=== PATIENT | male | born 1970 ===

== ENCOUNTER 2018-10-16 17:23 | Inpatient (IN) | payer MEDICAID, OTHER ==
[~2018-10-16] VITALS: Ht 175.3 cm; Wt 100.0 kg
--- NOTE | 2018-10-16 18:07 | NUR ---
PATEINT TO RADIOLOGY.
[2018-10-16 18:27] LABS: BASOPHILS % (AUTO) 0 % (0-1); EOSINOPHILS % (AUTO) 0 % (0-6); HEMATOCRIT 46.6 % (42.0-52.0); HEMOGLOBIN 15.8 g/dl (14.0-17.9); LYMPHOCYTES # (AUTO) 0.8 X10'3 (1.1-4.8); LYMPHOCYTES % (AUTO) 3.8 % (21-51); MEAN CORPUSCULAR HEMOGLOBIN 29.9 PG (27.0-31.0); MEAN CORPUSCULAR HGB CONC 33.8 % (33.0-36.5); MEAN CORPUSCULAR VOLUME 88.4 FL (78-98); MEAN PLATELET VOLUME 8.5 FL (7.4-10.4); MONOCYTES % (AUTO) 4.5 % (2-12); NEUTROPHILS # (AUTO) 20.2 X10'3 (1.8-7.7); NEUTROPHILS % (AUTO) 91.7 % (42-75); PLATELET COUNT 204 X10'3 (140-440); RED BLOOD COUNT 5.27 X10'6 (4.70-6.10); RED CELL DISTRIBUTION WIDTH 13.5 % (11.5-14.5)
[2018-10-16 18:35] LABS: PARTIAL THROMBOPLASTIN TIME 27 SECONDS (22-32); PROTHROMBIN TIME 10.3 SECONDS (9.0-12.0)
[2018-10-16] MEDS ORDERED: NO HOME MEDS (18:36)
[2018-10-16 18:41] LABS: ALANINE AMINOTRANSFERASE 23 U/L (12-78); ALBUMIN 3.3 G/DL (3.4-5.0); ALKALINE PHOSPHATASE 122 IU/L (46-116); ANION GAP 10 (8-16); ASPARTATE AMINO TRANSFERASE 14 U/L (10-37); BLOOD UREA NITROGEN 19 MG/DL (7-18); BUN/CREATININE RATIO 12.2 (5.4-32.0); CALCIUM 8.4 MG/DL (8.5-10.1); CHLORIDE 100 MMOL/L (99-107); CREATININE 1.56 MG/DL (0.60-1.10); GLUCOSE 136 MG/DL (70-104); POTASSIUM 3.5 MMOL/L (3.5-5.1); SODIUM 135 MMOL/L (135-145); TOTAL CARBON DIOXIDE 25.2 MMOL/L (24-32); TOTAL PROTEIN 6.7 G/DL (6.4-8.2); eGFR 47 ML/MIN
[2018-10-16] MEDS ORDERED: normal saline 1000ml 1,000 ML IVB ONE ×2 (18:41→19:50)
[2018-10-16 19:19] LABS: PLATELET ESTIMATE NORMAL; TOTAL CELLS COUNTED 100
[2018-10-16 19:20] LABS: LARGE PLATELETS FEW
--- NOTE | 2018-10-16 19:51 | NUR ---
DR BAL MADE AWARE RN HUNG ANOTHER LITER OF NS HR STILL TACHY 115 AND BP HAD DROPPED TO 91/69. SO ORDERED.
[2018-10-16] MEDS ORDERED: levoFLOXACIN-Levaquin 750MG/D5 150 ML IV STA (19:57)
[2018-10-16] MEDS ORDERED: normal saline 1000ml 1,000 ML IV ONE (20:00)
[2018-10-16] MEDS ORDERED: acetaminophen 325mg tablet PO ONE (20:15)
--- NOTE | 2018-10-16 20:19 | NUR ---
SECOND LITER OF FLUID STILL INFUSING, ABX STARTED. HE IS C/O PAIN. SPUTUM CULTURE COLLECTED.
--- NOTE | 2018-10-16 20:30 | NUR ---
FAMILY STEPPED OUT TO GET HIM SOME FOOD, HE IS HUNGRY FOR SOFT SHELLED TACOS.
[2018-10-16] MEDS ORDERED: acetaminophen 325mg tablet PO PRN ×2 (20:35)
[2018-10-16] MEDS ORDERED: magnesium hydroxide 30ml (MOM) UD suspension PO PRN (20:35)
[2018-10-16] MEDS ORDERED: mag hydrox/Alum hydrox/simeth 30ml oral suspension PO PRN (20:35)
[2018-10-16] MEDS ORDERED: morphine 10mg/ml inj. IV PRN (20:35)
[2018-10-16] MEDS ORDERED: HYDROcodone/acetaminophen 5mg/325mg tablet PO PRN (20:35)
[2018-10-16] MEDS ORDERED: ondansetron/PF 4mg/2ml inj IV PRN (20:35)
[2018-10-16] MEDS: morphine 10mg/ml inj. IV PRN (20:51)
--- NOTE | 2018-10-16 20:56 | NUR ---
FAMILY BACK AND HE IS EATING HIS TACOS, ADM PAIN MEDS.
[2018-10-16] MEDS: normal saline 1000ml 1,000 ML IV SCH (21:11)
[2018-10-16] MEDS: temazepam 15mg capsule PO PRN (21:31)
--- NOTE | 2018-10-16 21:32 | NUR ---
HE HAD SAT UP IN BED, APPEARING ANXIOUS, REMOVED HIS GOWN. HE IS RESTLESS. ADM RESTORIL. FAMILY HAS LEFT
--- NOTE | 2018-10-16 21:32 | NUR ---
CHER: [phone] (DAUGHTER)
--- NOTE | 2018-10-16 22:07 | NUR ---
pt finally asleep.
--- NOTE | 2018-10-16 23:51 | NUR ---
he said he is just not feeling well, difficulty breathing, still anxious, VS as charted. Will call hospitalist.
--- NOTE | 2018-10-16 23:52 | NUR ---
oxygen increased to 4 l nc for spox 90% on 2 L nc.
[2018-10-16] MEDS ORDERED: LORazepam 2 mg/ml vial IV STA (23:54)
[2018-10-16] MEDS ORDERED: normal saline 1000ml 1,000 ML IV STA (23:54)
--- NOTE | 2018-10-16 23:55 | NUR ---
dr Lucas notified via telephone how the patient is presenting, the VS and the procalcitonin level. Ativan 1 mg IV ordered and another liter of NS. informed that the patient has not voided yet and that he has no feelings of needing to void.
--- NOTE | 2018-10-17 00:45 | NUR ---
Pt moved onto a hospital bed.
--- NOTE | 2018-10-17 03:29 | NUR ---
HR 120 bpm. Discussed with the patient how much ETOH he drinks. He seemed defensive. He says he doesn't drink every day. He didn't drink past 2 days. He said he drink 2 x a week and "a drink." He has yet to void. Hung another liter of NS.
[2018-10-17] MEDS ORDERED: normal saline 1000ml 1,000 ML IV ONE (03:30)
[2018-10-17 05:34] LABS: URINE AMPHETAMINE SCREEN POSITIVE (Neg); URINE BARBITUATE SCREEN NEGATIVE (Neg); URINE BENZODIAZEPINES SCREEN NEGATIVE (Neg); URINE CANNABINOID SCREEN NEGATIVE (Neg); URINE COCAINE SCREEN NEGATIVE (Neg); URINE METHADONE SCREEN NEGATIVE (Neg); URINE OPIATE SCREEN POSITIVE (Neg); URINE PHENCYCLIDINE SCREEN NEGATIVE (Neg)
--- NOTE | 2018-10-17 05:44 | NUR ---
amphetamine noted in his ua.
[2018-10-17 05:56] LABS: CLARITY,URINE CLEAR (Clear); COLOR,URINE YELLOW (Yellow); GLUCOSE, URINE NEGATIVE (Neg); KETONES,URINE NEGATIVE (Neg); LEUKOCYTE ESTERASE ,URINE NEGATIVE (Neg); NITRITES, URINE NEGATIVE (Neg); OCCULT BLOOD,URINE NEGATIVE (Neg); PH,URINE 5.5 (4.8-8.0); PROTEIN,URINE TRACE mg/dl (Neg); UROBILINOGEN,URINE 0.2 E.U/dL (0.2-1.0)
[2018-10-17 05:57] LABS: UA COLLECTION TYPE VOIDED
[2018-10-17 06:15] LABS: BACTERIA,URINE NONE SEEN /HPF (Neg); MUCUS STRANDS MANY /LPF (Neg); RBC,URINE 0-2 /HPF (0-2); SQUAMOUS EPITHELIAL CELL,UR FEW /LPF (FEW); TRANSITIONAL EPI CELLS,URINE FEW /HPF; WBC,URINE 0-4 /HPF (0-4)
[2018-10-17 06:16] LABS: AMORPHOUS URATES 1+
[2018-10-17] MEDS: normal saline 1000ml 1,000 ML IV SCH ×2 (06:32→16:32)
--- NOTE | 2018-10-17 06:37 | NUR ---
PATIENT ON BED ASLEEP,IV NS INFUSING 100ML/HR.
--- NOTE | 2018-10-17 07:29 | NUR ---
given a pitcher of water with ice,awaiting for inpatient room assignment.
[2018-10-17] MEDS: enoxaparin 40mg/0.4ml syringe SUBCUT SCH (08:07)
--- NOTE | 2018-10-17 08:09 | NUR ---
patient wanting a different nurse since his Primary nurse is being "rude",reported he c.o "hard time breathing" this morning but was flat out lie.Primary RN did morning rounds this morning,cleaned his tray with sputum all over,gave him emesis bag to spit his sputum,given him pitcher of water with ice,offered hospital gown-without any complains of pain or breathing issues.
[2018-10-17] MEDS: morphine 10mg/ml inj. IV PRN (08:26)
--- NOTE | 2018-10-17 08:29 | NUR ---
PAGED DR. CID TO REQUEST BREATHING TX.PATIENT NOTED CRACKLES TO BOTH UPPER LOBES.
--- NOTE | 2018-10-17 08:29 | NUR ---
YURIY 93% ON 5L,WILL CONTACT
--- NOTE | 2018-10-17 08:30 | NUR ---
ALSO REPORTS SOB AT THIS TIME.SAT 99 % ON 5l NC.
--- NOTE | 2018-10-17 09:08 | NUR ---
PATIENT ASLEEP A THIS TIME,AWAITNG FOR DR. CID'S CALL AFTER REQUEST FOR BREATHING TX.
--- NOTE | 2018-10-17 09:21 | NUR ---
paged Dr. Martinez 2 to request breathing tx.
[2018-10-17] MEDS ORDERED: albuterol 2.5 MG/3 ML nebule NEB PRN (09:45)
[2018-10-17 10:10] LABS: ALBUMIN 2.5 G/DL (3.4-5.0); ANION GAP 8 (8-16); BLOOD UREA NITROGEN 18 MG/DL (7-18); BUN/CREATININE RATIO 17.8 (5.4-32.0); CALCIUM 7.7 MG/DL (8.5-10.1); CHLORIDE 104 MMOL/L (99-107); CREATININE 1.01 MG/DL (0.60-1.10); GLUCOSE 81 MG/DL (70-104); POTASSIUM 4.1 MMOL/L (3.5-5.1); SODIUM 138 MMOL/L (135-145); TOTAL CARBON DIOXIDE 26.2 MMOL/L (24-32); eGFR 78 ML/MIN
[2018-10-17 10:12] LABS: BASOPHILS % (AUTO) 0.1 % (0-1); EOSINOPHILS % (AUTO) 0 % (0-6); HEMATOCRIT 40.8 % (42.0-52.0); HEMOGLOBIN 13.6 g/dl (14.0-17.9); LYMPHOCYTES # (AUTO) 2.2 X10'3 (1.1-4.8); LYMPHOCYTES % (AUTO) 10.2 % (21-51); MEAN CORPUSCULAR HGB CONC 33.3 % (33.0-36.5); MEAN PLATELET VOLUME 8.9 FL (7.4-10.4); MONOCYTES # (AUTO) 0.6 X10'3 (0-0.9); MONOCYTES % (AUTO) 2.6 % (2-12); NEUTROPHILS # (AUTO) 19.1 X10'3 (1.8-7.7); NEUTROPHILS % (AUTO) 87.1 % (42-75); PLATELET COUNT 197 X10'3 (140-440); RED BLOOD COUNT 4.54 X10'6 (4.70-6.10); RED CELL DISTRIBUTION WIDTH 13.9 % (11.5-14.5); WHITE BLOOD COUNT 21.9 X10'3 (4.5-11.0)
[2018-10-17 10:30] LABS: PLATELET ESTIMATE NORMAL; TOTAL CELLS COUNTED 100
--- NOTE | 2018-10-17 12:49 | NUR ---
PT'S DAUGHTER DAGO [phone]
--- NOTE | 2018-10-17 12:50 | NUR ---
PT IS UP AND AMBULATED TO THE BATHROOM.
--- NOTE | 2018-10-17 17:23 | NUR ---
DAE CUNNINGHAM GAVE PT 2 ICE PACKS FOR PT'S NECK. PT IS SLEEPING LAYING SUPINE, RESPIRATIONS EVEN AND UNLABORED. NO DISTRESS NOTED AT THIS TIME.
[2018-10-17] MEDS ORDERED: levoFLOXACIN-Levaquin 750MG/D5 150 ML IV SCH (20:00)
[2018-10-17] MEDS: lactobacillus rhamnosus 10,000 MMU CELLS/CAPSULE PO SCH (20:54)
[2018-10-17] MEDS: HYDROcodone/acetaminophen 10/325mg tab PO PRN (20:54)
--- NOTE | 2018-10-17 22:17 | NUR ---
Consulted with Dr Lucas about doing a CTA on the patient to r/o PE since pt continues to be tachycardic, diff breathing, anxiety prn and on oxygen. Aware of other rationalizations for such findings, r/o differential. Ordered CTA per agreement of such r/o of differential.
[2018-10-17] MEDS ORDERED: iohexol 350MG/ML 100ml bottle IV ONE (22:56)
[2018-10-18] MEDS: HYDROcodone/acetaminophen 10/325mg tab PO PRN (01:32)
[2018-10-18] MEDS: temazepam 15mg capsule PO PRN (02:07)
[2018-10-18] MEDS: normal saline 1000ml 1,000 ML IV SCH ×2 (02:30→05:57)
[2018-10-18 07:45] LABS: BASOPHILS % (AUTO) 0.2 % (0-1); EOSINOPHILS # (AUTO) 0.2 X10'3 (0-0.9); EOSINOPHILS % (AUTO) 1.3 % (0-6); HEMATOCRIT 41.1 % (42.0-52.0); HEMOGLOBIN 13.7 g/dl (14.0-17.9); LYMPHOCYTES # (AUTO) 2.8 X10'3 (1.1-4.8); LYMPHOCYTES % (AUTO) 13.9 % (21-51); MEAN CORPUSCULAR HEMOGLOBIN 29.7 PG (27.0-31.0); MEAN CORPUSCULAR HGB CONC 33.3 % (33.0-36.5); MEAN CORPUSCULAR VOLUME 89.3 FL (78-98); MEAN PLATELET VOLUME 8.1 FL (7.4-10.4); MONOCYTES % (AUTO) 4.9 % (2-12); NEUTROPHILS # (AUTO) 15.8 X10'3 (1.8-7.7); NEUTROPHILS % (AUTO) 79.7 % (42-75); PLATELET COUNT 210 X10'3 (140-440); RED CELL DISTRIBUTION WIDTH 13.8 % (11.5-14.5); WHITE BLOOD COUNT 19.8 X10'3 (4.5-11.0)
[2018-10-18 08:02] LABS: ALBUMIN 2.3 G/DL (3.4-5.0); ANION GAP 7 (8-16); BLOOD UREA NITROGEN 11 MG/DL (7-18); BUN/CREATININE RATIO 12.5 (5.4-32.0); CALCIUM 8.3 MG/DL (8.5-10.1); CHLORIDE 105 MMOL/L (99-107); CREATININE 0.88 MG/DL (0.60-1.10); GLUCOSE 84 MG/DL (70-104); POTASSIUM 3.9 MMOL/L (3.5-5.1); SODIUM 137 MMOL/L (135-145); eGFR > 90 ML/MIN
--- NOTE | 2018-10-18 08:07 | NUR ---
Patient in room ED 16. I have received report from XENIA Clemons and had the opportunity to ask questions. Awaiting pt's arrival to PCU [id number]
[2018-10-18 08:30] LABS: PLATELET ESTIMATE NORMAL; TOTAL CELLS COUNTED 100
[2018-10-18] MEDS: lactobacillus rhamnosus 10,000 MMU CELLS/CAPSULE PO SCH (09:17)
[2018-10-18] MEDS: enoxaparin 40mg/0.4ml syringe SUBCUT SCH (09:18)
[2018-10-18 09:40] VITALS: BP 140/93
--- NOTE | 2018-10-18 09:40 | NUR ---
Pt arrived from ED in hospital bed. Vital signs obtained. This RN witnessed pt ambulate independently from bed to bathroom. Pt refused offer of hospital gown.
[2018-10-18 11:00] VITALS: BP 143/86
--- NOTE | 2018-10-18 14:15 | NUR ---
Pt stated "I'm getting out of here, I'm going to [place] when my daughter gets here to pick me up". Pt educated on need to stay for medical care due to condition. Pt continued to state he wanted to leave. AMA form brought to patient who willingly signed it.
--- NOTE | 2018-10-18 14:33 | NUR ---
Paged Dr. Agustin re pt leaving AMA PAGER ID: [phone] MESSAGE: Pt Anderson Moody in [id number] is leaving AMA. Paperwork signed, waiting for his ride. Thanks! Winter MICHAELS [phone]
--- NOTE | 2018-10-18 15:00 | NUR ---
Pt left AMA. IV removed, cannula intact. Tele box removed & returned to telephone instrument supervisor. All pt belongings gathered up and sent with patient.
[2018-10-18] MEDS ORDERED: benzonatate 100mg capsule PO SCH (16:00)
[2018-10-18] MEDS ORDERED: Potassium Cl inj 20 MEQ in normal saline 1000ml 1,000 ML IV SCH (20:32)
== END 2018-10-18 15:05 | disposition left against medical advice (07) | DRG 720 ==
LOC: ER 17:26 → ED HOLD 20:32 → PCU 3S 10-18 09:33
PROVIDERS: ADMIT Hospitalist; ATTEND Internal Medicine
PROC: B32T1ZZ Computerized Tomography (CT Scan) of Left Pulmonary Artery using Low Osmolar Contrast (ICD-10-PCS; principal; 2018-10-17)
PROC: B3201ZZ Computerized Tomography (CT Scan) of Thoracic Aorta using Low Osmolar Contrast (ICD-10-PCS; 2018-10-17)
PROC: B32S1ZZ Computerized Tomography (CT Scan) of Right Pulmonary Artery using Low Osmolar Contrast (ICD-10-PCS; 2018-10-17)
DX: A40.3 Sepsis due to Streptococcus pneumoniae (principal); N17.9 Acute kidney failure, unspecified; J15.4 Pneumonia due to other streptococci; R04.2 Hemoptysis; E86.0 Dehydration; F17.200 Nicotine dependence, unspecified, uncomplicated; F15.10 Other stimulant abuse, uncomplicated
CPT/HCPCS: 36415; 71046; 71275; 80048; 80053; 80305; 81001; 83605; 84145; 84484; 85025; 85610; 85730; 87040; 87070; 87077; 87186; 93005; 94640; 94760; 96361; 96374; 99291; G0378; J1650; J1956; J2060; J2270; J3480; J7030; Q9967